=== PATIENT | female | born 1995 | race African-American/Black ===

== ENCOUNTER 2020-10-03 09:14 | Emergency (ER) | payer BC ==
[~2020-10-03] VITALS: Ht 160 cm; Wt 55.8 kg
[2020-10-03 13:04] VITALS: BP 136/90
== END 2020-10-03 13:07 | disposition home or self-care (01) ==
LOC: ER 09:14
DX: S06.0X0A Concussion without loss of consciousness, initial encounter (principal); S60.512A Abrasion of left hand, initial encounter; S80.212A Abrasion, left knee, initial encounter; V49.9XXA Car occupant (driver) (passenger) injured in unspecified traffic accident, initial encounter; Y93.89 Activity, other specified; Y92.89 Other specified places as the place of occurrence of the external cause; Y99.8 Other external cause status